=== PATIENT | female | born 1975 | race Caucasian/White ===

== ENCOUNTER 2019-05-03 20:04 | Emergency (ER) | payer OTHER ==
[~2019-05-03] VITALS: Ht 162.6 cm; Wt 88.5 kg
[2019-05-03 20:09] VITALS: Ht 162.6 cm; Wt 88.5 kg
[2019-05-03 20:55] LABS: BASOPHIL % 0.5 % (0-2); PLATELET COUNT 284 x10^3mcL (130-400)
[2019-05-03 21:02] LABS: CALCIUM 9.3 mg/dL (8.5-10.1); CHLORIDE SERUM 99 mmol/L (98-107); CREATININE SERUM 0.8 mg/dL (0.6-1.0); GFR1 > 60 mL/min; GLUCOSE SERUM 125 mg/dL (74-106); POTASSIUM SERUM 3.1 mmol/L (3.5-5.1); SODIUM SERUM 137 mmol/L (136-145)
[2019-05-03 21:16] LABS: MAGNESIUM 2.1 mg/dL (1.8-2.4)
[2019-05-03 22:22] VITALS: BP 129/81
== END 2019-05-03 22:22 | disposition home or self-care (01) ==
LOC: ED 20:04
PROVIDERS: Emergency Medicine
DX: E87.6 Hypokalemia (principal); R55 Syncope and collapse; R11.0 Nausea; R10.9 Unspecified abdominal pain; I10 Essential (primary) hypertension; Z85.850 Personal history of malignant neoplasm of thyroid; Z91.040 Latex allergy status; Z91.048 Other nonmedicinal substance allergy status
CPT/HCPCS: J2765; J7030